=== PATIENT | male | born 1980 | race African-American/Black ===

== ENCOUNTER 2018-03-05 09:57 | Outpatient (CLI) | payer OTHER ==
[2018-03-05 10:10] LABS: BASOPHILS % 0.4 (0.0-1.5); EOSINOPHILS % 7.3 % (0.0-6.8); MEAN CORPUSCULAR HEMOGLOBIN 26.4 pg (28.0-34.0); MONOCYTES % 8.8 % (0.0-11.0); NEUTROPHILS # 1.9 # k/uL (1.4-7.7)
[2018-03-05 10:15] LABS: eGFR (Non-African) > 60
== END 2018-03-05 10:30 ==
LOC: LAB 09:57
PROVIDERS: ATTEND General Practice
DX: J01.90 Acute sinusitis, unspecified (principal)
CPT/HCPCS: 80053; 85025

== ENCOUNTER 2018-03-06 12:39 | Outpatient (CLI) | payer OTHER | END 2018-03-06 12:44 | disposition home or self-care (01) | LOC: LAB 12:39 | PROVIDERS: ATTEND General Practice | DX: J11.1 Influenza due to unidentified influenza virus with other respiratory manifestations (principal) | CPT/HCPCS: 87400 ==